=== PATIENT | female | born 1940 | race Caucasian/White ===

== ENCOUNTER 2018-04-30 09:45 | Outpatient (CLI) | payer MEDICARE, OTHER ==
--- NOTE | 2018-04-30 11:57 | PRG ---
DATE OF SERVICE: 04/30/2018 HISTORY: Mrs. Tricia Chambers is a very pleasant 77-year-old previously seen in [facility] for a venous ulceration of the right medial lower leg. The patient now presents to the [facility] for evaluation of an ulceration of the plantar surface of the right second toe. The ulceration of the r ight medial lower leg has healed completely and has remained healed according to the patient's husban d. The ulceration of the plantar surface of the right second toe has been present for approximately 1 month. The patient's states that Mrs. Chambers was seen by Dr. Gold and a course of p.o. antibiotics was prescribed which Mrs. Chambers has completed as prescribed. The patient has been rec eiving the application of vitamin E oil to the ulceration with or without a Band-Aid as a secondary d ressing. Most recently, the patient's states. Mrs. Chambers has not been receiving dressing changes with the use of a Band-Aid over the vitamin E oil. PAST MEDICAL HISTORY: 1. Hypertension. 2. Diabetes mellitus. 3. Arthritis. 4. Osteopenia. 5. Coronary artery disease. 6. Gastroesophageal reflux disease. 7. Dementia. PAST SURGICAL HISTORY: 1. Appendectomy. 2. Tubal ligation. 3. D&C. 4. Right total knee arthroplasty. 04/26/2014. MEDICATIONS: The patient does not have a list of her medications with her today. She states that he r medications; however, include a multivitamin, and vitamin B12. PHYSICAL EXAMINATION: VITAL SIGNS: Temperature 97.7, pulse 73, respirations 21, blood pressure 149/83. Accu-Chek 237. EXTREMITIES: An ulceration of the plantar surface of the right second toe is present, which measures approximately 0.6 x 0.6 cm. Granulation tissue is present within the wound margins. Necrotic and n onviable tissue present within the wound margins was debrided with an excisional full-thickness debri pavel with the use of a curette. Desiccated tissue at the periphery of the wound was excised with t he use of scissors. No purulent drainage is associated with the granulating wound. No erythema of t he skin surrounding the wound is present. No maceration of the skin of the periwound is noted. A do rsalis pedis pulse is palpable on the right. Edema of the right second toe is present on exam today. ASSESSMENT AND PLAN: 1. Ulceration of plantar surface of right second toe. Plain films of the right foot will be obtaine d to look for findings suggestive of osteomyelitis. The patient is also to receive dressing changes of Medihoney and bordered gauze on a daily basis or alternatively every other day after cleansing and irrigation with the assistance of her . Arrangements will be made for the home delivery of d ressing supplies. I have explained to the patient and her if plain films show no evidence of osteomyelitis, consideration will need to be given to MRI with and without contrast to look for find ings suggestive of osteomyelitis. The patient and her understand and are in agreement with t he preceding treatment plan. 2. Hypertension. 3. Diabetes mellitus. The patient's Accu-Chek in clinic today is 237. The patient and her have been told that for optimal wound healing, the patient's blood glucoses should remain below 150. 4. Arthritis. 5. Osteopenia. 6. Coronary artery disease. 7. Gastroesophageal reflux. 8. Dementia.
[2018-04-30] MEDS ORDERED: Sodium Chloride 0.9% 15 ML NEB ONE (16:00)
[2018-04-30] MEDS ORDERED: Lidocaine 2% Jelly 5 ML TUBE ONE (16:00)
== END 2018-04-30 09:46 | disposition home or self-care (01) ==
LOC: WCC 09:45
PROVIDERS: ATTEND Family Medicine
DX: E11.621 Type 2 diabetes mellitus with foot ulcer (principal); L97.519 Non-pressure chronic ulcer of other part of right foot with unspecified severity; I10 Essential (primary) hypertension; M19.90 Unspecified osteoarthritis, unspecified site; M85.80 Other specified disorders of bone density and structure, unspecified site; I25.10 Atherosclerotic heart disease of native coronary artery without angina pectoris; K21.9 Gastro-esophageal reflux disease without esophagitis; F03.90 Unspecified dementia, unspecified severity, without behavioral disturbance, psychotic disturbance, mood disturbance, and anxiety
CPT/HCPCS: 11042; 99213; A4218; G0463

== ENCOUNTER 2018-04-30 11:25 | Outpatient (CLI) | payer MEDICARE, OTHER ==
--- NOTE | 2018-04-30 13:51 | RAD ---
RIGHT SECOND TOE THREE VIEWS: HISTORY: A 77-year-old female with a history of a chronic wound. Clinical concern for osteomyelitis. FINDINGS: There is some soft tissue swelling of the second toe. No overt bony erosive or destructive changes. Deformity of the third metatarsal distally, evidence for a healed fracture. IMPRESSION: Soft tissue swelling of the second toe without fracture or dislocation or evidence for acute bony ero sive or destructive changes. If there remains clinical concern for osteomyelitis, a follow-up MRI st ud[facility] is suggested. POS: TERE
== END 2018-04-30 11:26 | disposition home or self-care (01) ==
LOC: RAD 11:25
PROVIDERS: ATTEND Family Medicine
DX: L97.519 Non-pressure chronic ulcer of other part of right foot with unspecified severity (principal)

== ENCOUNTER 2018-05-15 11:36 | Outpatient (CLI) | payer MEDICARE ==
[2018-05-15] MEDS ORDERED: Gadobenate Dimeglumine 529 MG/1 ML (20ML VIAL) ONE (12:38)
--- NOTE | 2018-05-15 16:45 | MRI ---
MRI OF THE RIGHT FOREFOOT WITH AND WITHOUT IV CONTRAST: PROVIDED CLINICAL HISTORY: Chronic right 2nd toe ulceration. FINDINGS: There is diminished T1 signal intensity and increased signal intensity on the fluid-sensitive sequenc es involving the 2nd digit distal phalanx. This demonstrates corresponding contrast enhancement. Th ere is enhancement of the surrounding soft tissues. There is no evidence for focal fluid collection to suggest abscess. There is no significant tenosynovial fluid apparent. No joint effusion is evide nt. Regional marrow signal appears otherwise normal. Alignment appears anatomic. Nonspecific fluid signal intensity at the dorsum of the foot without associated contrast enhancement presumably reflec ting lymphedema. The dorsal extensor and plantar flexor tendons demonstrate an intact MR appearance. IMPRESSION: Findings compatible with the provided clinical history of 2nd digit wound, with associated osteomyeli tis involving the 2nd digit distal phalanx. POS: [facility]
== END 2018-05-15 11:37 | disposition home or self-care (01) ==
LOC: MRI 11:36
PROVIDERS: ATTEND Family Medicine
DX: E11.621 Type 2 diabetes mellitus with foot ulcer (principal); L97.519 Non-pressure chronic ulcer of other part of right foot with unspecified severity
CPT/HCPCS: A9579

== ENCOUNTER 2018-06-11 08:00 | Day surgery (SDC) | payer MEDICARE ==
--- NOTE | 2018-06-10 10:39 | HP ---
HISTORY OF PRESENT ILLNESS: Tricia Chambers is a 77-year-old female, ambulatory with a walker, followed by Dr. Gold, has seen by Dr. Hardwick in [facility]. She has a right second toe wound which on plain x-rays demonstrated suggestion of osteomyelitis and subsequent MRI scan at [facility] on 05/15/2018 revealed right second toe distal phalanx osteomyelitis. She has a chronic wou nd and mild redness. She has palpable pedal pulses. She has changes of chronic venous stasis. She has been referred for consideration of amputation. Plan is to perform this as an outpatient under in travenous sedation and regional anesthesia, such as ankle block provided by Anesthesia. ALLERGIES: PENICILLIN; SULFA; ZOLOFT, diarrhea and neck spasm; ZANTAC, rash; NEOSPORIN, rash; PENICI LLIN, rash; SULFA, rash. TOBACCO: None. ALCOHOL: None. MEDICATIONS: List obtained from Dr. Gold's records reveal fluoxetine 20 mg a day, amlodipine besy late 20 mg a day, Lantus insulin 2 units at bedtime, Humalog lispro 6 units q.i.d. as needed, pioglit azone 30 mg daily, donepezil 10 mg at bedtime, gabapentin 300 mg b.i.d., Osteo Bi-Flex vitamins, Penl ac solution as needed. PAST SURGICAL HISTORY: Right total knee replacement, right total knee replacement in 2012, cataract surgery, tubal ligation in 1983. PAST MEDICAL HISTORY: Chronic venous stasis disease, diabetes mellitus, hypertension, osteomyelitis of right second toe, sciatica. REVIEW OF SYSTEMS: Noncontributory. FAMILY HISTORY: Noncontributory. PHYSICAL EXAMINATION: VITAL SIGNS: 151/50, 73, 97.9 degrees, 170 pounds, 63 inches. HEENT: Unremarkable. LUNGS: Clear to auscultation. CARDIAC: Regular rate and rhythm without murmur or gallop. ABDOMEN: Soft, obese, nontender. EXTREMITIES: Palpable femoral, popliteal, dorsalis pedis, posterior tibial pulses. Right second toe reveals mild edema with ulceration at the tip. There are some changes over the dorsum of the foot b eneath the right second toe indicative of chronic inflammation resolved. There are chronic venous st asis changes in foot and leg. There are no venous stasis ulcers. ASSESSMENT AND PLAN: Right second toe osteomyelitis, distal phalanx. Would recommend amputation of right second toe. Regional anesthesia ankle block provided by Anesthesia with intravenous sedation o n outpatient and discharged home with a postoperative shoe. Weightbear as tolerated. She will remov e the dressings in 48 hours and begin washing the foot daily with soap and water, placing antibiotic ointment and Band-Aid on it daily. She will report to my office in 2 weeks for suture removal.
[2018-06-10 10:49] VITALS: BMI 29.9
[2018-06-11] MEDS ORDERED: Midazolam HCl 2 mg/2 ml Vial ONE (09:43)
[2018-06-11] MEDS ORDERED: Propofol 500 MG/50 ML VIAL ONE ×2 (09:43→09:58)
[2018-06-11] MEDS ORDERED: Bupivacaine 0.25% HCL 30 ML VIAL ONE (09:43)
[2018-06-11] MEDS ORDERED: Fentanyl 100 MCG/2 ML VIAL ONE (09:43)
[2018-06-11] MEDS ORDERED: Bupivacaine PF 0.5% 30 ML VIAL ONE (09:48)
[2018-06-11] MEDS ORDERED: Lidocaine 2% PF 5 ML VIAL ONE (09:49)
[2018-06-11 09:52] LABS: #Basophils 0.1 thou/uL (0.0-0.2); #Eosinphils 0.2 thou/uL (0.0-0.7); #Lymphocytes 1.2 thou/uL (1.20-3.40); #Monocytes 0.5 thou/uL (0.11-0.59); #Neutrophils 3.6 thou/uL (1.40-6.50); %Basophils 0.9 % (0.0-1.0); %Eosinophils 3.3 % (0.0-10.0); %Lymphocytes 22.1 % (21.0-51.0); %Monocytes 9.5 % (0.0-10.0); %Neutrophils 64.2 % (42.0-75.0); Hemoglobin 12.3 g/dL (12.0-16.0); Mean Corpuscular HGB CONC 32.9 g/dL (32.0-36.0); Mean Corpuscular Hemoglobin 31.3 pg (27.0-31.0); Mean Corpuscular Volume 95.1 fL (78.0-98.0); Mean Platelet Volume 7.8 fL (7.4-10.4); Platelet Count 183 thou/uL (130-400); RBC Distribution Width 12.4 % (11.5-14.5); Red Blood Cell (RBC) Count 3.92 mill/uL (4.20-5.40); White Blood Cell (WBC) Count 5.6 thou/uL (4.8-10.8)
[2018-06-11] MEDS ORDERED: Cefepime 2 GM in Sodium Chloride 0.9% 100 ML IVPB SCH (10:00)
[2018-06-11 10:13] LABS: Anion Gap 10 mmol/L (10-20); BUN (Urea Nitrogen) 23 mg/dL (9.8-20.1); Calc. Creatinine Clearance 60 mL/min (70-130); Calcium 10.1 mg/dL (7.8-10.44); Carbon Dioxide 29 mmol/L (23-31); Chloride 104 mmol/L (98-107); Estimated GFR-MDRD 60; Glucose 226 mg/dL (83-110); Potassium 4.9 mmol/L (3.5-5.1); Sodium 138 mmol/L (136-145)
[2018-06-11] MEDS ORDERED: Bacitracin Zinc Ointment 30 gm TUBE ONE (10:38)
[2018-06-11] MEDS ORDERED: PROPOFOL 200 MG/20 ML VIAL ONE (11:16)
--- NOTE | 2018-06-11 11:49 | OP ---
DATE OF SURGERY: 06/11/2018 PREOPERATIVE DIAGNOSIS: Right second toe osteomyelitis, distal phalanx; diabetic neuropathic ulcer, tip of the toe; palpable pulses. No peripheral arterial disease. SURGEON: Anish Sánchez M.D. ANESTHESIA: TIVA ankle block. PROCEDURE: The patient was taken to the operating room where under right ankle block intravenous sed ation, right lower extremity was prepped with ChloraPrep, draped in routine fashion. Amputation of r ight second toe performed with a fish mouth incision, amputated to the proximal phalanx, resected pro ximally with rongeurs, debriding connective tissue. Excellent bleeding noted from the digital arteri es, cauterized and subcutaneously irrigated and subcutaneous tissue closed proximally with 4-0 Monocr yl, skin with interrupted vertical mattress sutures of 4-0 Prolene. Antibiotic ointment and sterile dressings applied.
--- NOTE | 2018-06-11 15:51 | EKG ---
Test Reason : PREOP Blood Pressure : / mmHG Vent. Rate : 068 BPM Atrial Rate : 068 BPM P-R Int : 170 ms QRS Dur : 080 ms QT Int : 400 ms P-R-T Axes : 049 -26 037 degrees QTc Int : 425 ms Normal sinus rhythm Normal ECG No previous ECGs available Confirmed by TATIANA PATEL ([id number]) on 06/11/2018 3:51:20 PM Referred By: CANDICE Confirmed By:TATIANA PATEL
== END 2018-06-11 13:09 | disposition home or self-care (01) ==
LOC: SDC 08:00
PROVIDERS: ATTEND Specialist
PROC: 0Y6R0Z1 Detachment at Right 2nd Toe, High, Open Approach (ICD-10-PCS; principal; 2018-06-11)
DX: E11.69 Type 2 diabetes mellitus with other specified complication (principal); M86.8X7 Other osteomyelitis, ankle and foot; E11.621 Type 2 diabetes mellitus with foot ulcer; L97.519 Non-pressure chronic ulcer of other part of right foot with unspecified severity; E11.40 Type 2 diabetes mellitus with diabetic neuropathy, unspecified; I10 Essential (primary) hypertension; M54.30 Sciatica, unspecified side; I25.10 Atherosclerotic heart disease of native coronary artery without angina pectoris; M85.80 Other specified disorders of bone density and structure, unspecified site; Z79.4 Long term (current) use of insulin; Z79.899 Other long term (current) drug therapy; Z88.0 Allergy status to penicillin; Z88.2 Allergy status to sulfonamides; Z88.8 Allergy status to other drugs, medicaments and biological substances; Z96.651 Presence of right artificial knee joint
CPT/HCPCS: 36416; 80048; 85025; 88305; 88311; 93005; 93010; J0131; J0692; J2001; J2250; J2704; J3010; J3370; J7050; S0020

== ENCOUNTER 2019-08-24 13:48 | Outpatient (CLI) | payer MEDICARE ==
--- NOTE | 2019-08-24 15:56 | BD ---
BONE DENSITOMETRY USING DEXA: Date: 08/24/2019 HISTORY: Postmenopausal screening for osteoporosis. FINDINGS: Lumbar Spine: BMD (g/cm2) L1 0.773 T-Score: -2.0 Z-Score: 0.4 L2 0.828 T-Score: -1.8 Z-Score: 0.8 L3 0.839 T-Score: -2.2 Z-Score: 0.5 L4 0.910 T-Score: -1.4 Z-Score: 1.5 L1-L4 0.842 T-Score: -1.9 Z-Score: 0.8 Femoral Neck: 0.561 T-Score: -2.6 Z-Score: -0.3 Total Femur: 0.745 T-Score: -1.6 Z-Score: 0.5 IMPRESSION: Osteoporosis. POS: [facility]
== END 2019-08-24 13:49 | disposition home or self-care (01) ==
LOC: BICMAMMO 13:48
PROVIDERS: ATTEND Family Medicine
DX: Z13.820 Encounter for screening for osteoporosis (principal); M81.0 Age-related osteoporosis without current pathological fracture; Z78.0 Asymptomatic menopausal state
CPT/HCPCS: 77080

== ENCOUNTER 2023-04-21 16:50 | Inpatient (IN) | payer MEDICARE ==
[2023-04-21] MEDS ORDERED: Insulin Glargine 30 UNITS/0.3 ML VIAL SC SCH ×2 (21:00→22:30)
[2023-04-21] MEDS ORDERED: Dextrose 5% in Water 1,000 ML IV PRN (21:11)
[2023-04-21] MEDS ORDERED: Dextrose 50% Abboject 50 ML SYRINGE SLOW IVP PRN (21:11)
[2023-04-21] MEDS ORDERED: Glucagon 1 MG/ML KIT IM PRN (21:11)
[2023-04-21] MEDS: HumaLOG 300 UNITS/3 ML VIAL SC PRN (22:23)
[2023-04-21 22:37] LABS: Iron 11 ug/dL (50-170); Iron Binding Capacity, Total 229 mcg/dL (265-497)
[2023-04-21] MEDS ORDERED: Lactated Ringer's 1,000 ML IV SCH (22:45)
[2023-04-21 22:59] LABS: Hemoglobin A1c 6.2 % (4.0-6.0)
[2023-04-22 00:31] VITALS: BMI 24.5
[2023-04-22 04:11] LABS: #Monocytes 0.5 thou/uL (0.11-0.59); #Neutrophils 8.6 thou/uL (1.40-6.50); %Basophils 0.3 % (0.0-1.0); %Eosinophils 0.4 % (0.0-10.0); %Lymphocytes 5.2 % (21.0-51.0); %Monocytes 5.1 % (0.0-10.0); %Neutrophils 88.6 % (42.0-75.0); Hematocrit 22.4 % (36.0-47.0); Hemoglobin 6.8 g/dL (12.0-16.0); Mean Corpuscular HGB CONC 30.4 g/dL (32.0-36.0); Mean Corpuscular Hemoglobin 27.4 pg (27.0-31.0); Mean Corpuscular Volume 90.3 fl (78.0-98.0); Mean Platelet Volume 10.7 fL (7.4-10.4); Platelet Count 246 10x3/uL (130-400); RBC Distribution Width 15.6 % (11.5-14.5); Red Blood Cell (RBC) Count 2.48 mill/uL (4.20-5.40); White Blood Cell (WBC) Count 9.8 10x3/uL (4.8-10.8)
[2023-04-22 04:34] LABS: Anion Gap 11 mmol/L (10-20); BUN (Urea Nitrogen) 29 mg/dL (9.8-20.1); Calc. Creatinine Clearance 39 mL/min (70-130); Carbon Dioxide 27 mmol/L (23-31); Chloride 102 mmol/L (98-107); Estimated GFR 54; Glucose 158 mg/dL (83-110); Magnesium 1.8 mg/dL (1.6-2.6); Potassium 3.7 mmol/L (3.5-5.1); Sodium 136 mmol/L (136-145)
[2023-04-22] MEDS: Magnesium Oxide 400 MG TAB PO SCH ×2 (12:01→21:21)
[2023-04-22] MEDS: Multivitamin W/ Minerals 1 TAB PO SCH (12:01)
[2023-04-22] MEDS: Gabapentin 300 MG CAP PO SCH ×2 (12:01→21:21)
[2023-04-22] MEDS: Pioglitazone HCl 15 MG TAB PO SCH (12:01)
[2023-04-22] MEDS: Amlodipine 5 mg/Benazepril 20 mg CAP PO SCH (12:29)
[2023-04-22] MEDS ORDERED: Polyethylene Glycol 3350 17 GM Packet PO PRN (14:27)
[2023-04-22] MEDS: Acetaminophen 325 MG TAB PO PRN (16:43)
[2023-04-22] MEDS ORDERED: cefTRIAXone\\ROCEPHIN 1 GM in Sodium Chloride 0.9% 100 ML IVPB SCH (17:00)
[2023-04-22 18:17] LABS: Hematocrit 26.6 % (36.0-47.0); Hemoglobin 8.3 g/dL (12.0-16.0)
[2023-04-22] MEDS: FLUoxetine HCl 20 MG CAP PO SCH (21:21)
[2023-04-22] MEDS: Donepezil HCl 10 MG TAB PO SCH (21:21)
[2023-04-22] MEDS ORDERED: Acetaminophen 650 MG Suppository PR PRN (23:17)
[2023-04-23 04:44] LABS: #Monocytes 0.6 thou/uL (0.11-0.59); #Neutrophils 10.8 thou/uL (1.40-6.50); %Basophils 0.3 % (0.0-1.0); %Eosinophils 0.2 % (0.0-10.0); %Monocytes 5.3 % (0.0-10.0); %Neutrophils 89.5 % (42.0-75.0); Hematocrit 28.5 % (36.0-47.0); Hemoglobin 8.6 g/dL (12.0-16.0); Mean Corpuscular HGB CONC 30.2 g/dL (32.0-36.0); Mean Corpuscular Hemoglobin 27.2 pg (27.0-31.0); Mean Corpuscular Volume 90.2 fl (78.0-98.0); Mean Platelet Volume 11.1 fL (7.4-10.4); Platelet Count 221 10x3/uL (130-400); RBC Distribution Width 15.4 % (11.5-14.5); Red Blood Cell (RBC) Count 3.16 mill/uL (4.20-5.40); White Blood Cell (WBC) Count 12.1 10x3/uL (4.8-10.8)
[2023-04-23 05:50] LABS: Anion Gap 12 mmol/L (10-20); BUN (Urea Nitrogen) 25 mg/dL (9.8-20.1); Calc. Creatinine Clearance 34 mL/min (70-130); Calcium 10.4 mg/dL (7.8-10.44); Carbon Dioxide 26 mmol/L (23-31); Chloride 102 mmol/L (98-107); Estimated GFR 47; Glucose 243 mg/dL (83-110); Sodium 136 mmol/L (136-145)
[2023-04-23] MEDS: HumaLOG 300 UNITS/3 ML VIAL SC PRN ×3 (06:01→18:38)
[2023-04-23 06:05] LABS: Bacteria/HPF Rare-Few HPF (None Seen); Bilirubin Negative (Negative); Blood, Urine 2+ (Negative); Clarity Clear (Clear); Glucose, Urine (Dipstick) 500 mg/dL (Negative); Ketone, Urine Negative (Negative); Leukocyte 500 Leu/uL (Negative); Nitrite Negative (Negative); Protein, Urine (Dipstick) 100 mg/dL (Neg-Trace); Specific Gravity, Urine 1.028 (1.002-1.036); Squamous Epithelial 0-3 HPF (0-3); Urobilinogen Normal mg/dL (Less than 2); WBC/HPF Greater than 50 HPF (0-3)
[2023-04-23] MEDS ORDERED: Insulin Glargine 30 UNITS/0.3 ML VIAL SC SCH (08:15)
[2023-04-23] MEDS: Gabapentin 300 MG CAP PO SCH ×2 (08:50→20:22)
[2023-04-23] MEDS: Multivitamin W/ Minerals 1 TAB PO SCH (08:50)
[2023-04-23] MEDS: Amlodipine 5 mg/Benazepril 20 mg CAP PO SCH (08:50)
[2023-04-23] MEDS: Pioglitazone HCl 15 MG TAB PO SCH (08:50)
[2023-04-23] MEDS: Lactated Ringer's 1,000 ML IV SCH (09:38)
[2023-04-23] MEDS ORDERED: Vancomycin Dose by Levels Sliding Scale (Wt <71) FS SCH (11:45)
[2023-04-23] MEDS ORDERED: Vancomycin HCl 750 MG in Sodium Chloride 0.9% 250 ML 250 ML IVPB SCH (12:00)
[2023-04-23] MEDS ORDERED: Vancomycin HCl 500 MG in Sodium Chloride 0.9% 100 ML IVPB SCH (12:00)
[2023-04-23] MEDS: Acetaminophen 325 MG TAB PO PRN (20:23)
[2023-04-23] MEDS: FLUoxetine HCl 20 MG CAP PO SCH (20:24)
[2023-04-23] MEDS: Donepezil HCl 10 MG TAB PO SCH (20:24)
[2023-04-23] MEDS: Cefepime 1 GM in Sodium Chloride 0.9% 100 ML IVPB SCH (20:33)
[2023-04-24 04:51] LABS: #Eosinphils 0.1 thou/uL (0.0-0.7); #Monocytes 0.7 thou/uL (0.11-0.59); #Neutrophils 8.6 thou/uL (1.40-6.50); %Basophils 0.3 % (0.0-1.0); %Eosinophils 1.1 % (0.0-10.0); %Lymphocytes 7.8 % (21.0-51.0); %Monocytes 6.6 % (0.0-10.0); %Neutrophils 83.8 % (42.0-75.0); Hematocrit 26.1 % (36.0-47.0); Mean Corpuscular HGB CONC 30.7 g/dL (32.0-36.0); Mean Corpuscular Hemoglobin 27.6 pg (27.0-31.0); Platelet Count 217 10x3/uL (130-400); RBC Distribution Width 15.5 % (11.5-14.5); White Blood Cell (WBC) Count 10.3 10x3/uL (4.8-10.8)
[2023-04-24 05:12] LABS: Anion Gap 10 mmol/L (10-20); BUN (Urea Nitrogen) 29 mg/dL (9.8-20.1); Calc. Creatinine Clearance 31 mL/min (70-130); Calcium 10.1 mg/dL (7.8-10.44); Carbon Dioxide 26 mmol/L (23-31); Chloride 100 mmol/L (98-107); Estimated GFR 42; Glucose 252 mg/dL (83-110); Potassium 3.7 mmol/L (3.5-5.1); Sodium 132 mmol/L (136-145)
[2023-04-24] MEDS: HumaLOG 300 UNITS/3 ML VIAL SC PRN ×3 (07:11→17:38)
[2023-04-24] MEDS: Multivitamin W/ Minerals 1 TAB PO SCH (08:51)
[2023-04-24] MEDS: Gabapentin 300 MG CAP PO SCH ×2 (08:51→20:17)
[2023-04-24] MEDS: Pioglitazone HCl 15 MG TAB PO SCH (08:51)
[2023-04-24] MEDS: Cefepime 1 GM in Sodium Chloride 0.9% 100 ML IVPB SCH ×2 (08:52→20:16)
[2023-04-24] MEDS: Lactated Ringer's 1,000 ML IV SCH ×3 (09:05→21:18)
[2023-04-24] MEDS ORDERED: Gentamicin 80 MG/2 ML VIAL IM SCH (11:00)
[2023-04-24] MEDS ORDERED: Iopamidol 370 76% 100 ML VIAL ONE (11:39)
[2023-04-24] MEDS: Amlodipine 5 mg/Benazepril 20 mg CAP PO SCH (12:03)
[2023-04-24 13:39] LABS: Vancomycin, Random 6.3 ug/mL (See Comment)
[2023-04-24] MEDS ORDERED: Vancomycin 1 GM in Premix Bag 1 BAG IVPB SCH (16:00)
[2023-04-24] MEDS: Donepezil HCl 10 MG TAB PO SCH (20:17)
[2023-04-24] MEDS: FLUoxetine HCl 20 MG CAP PO SCH (20:17)
[2023-04-24] MEDS ORDERED: Insulin Glargine 30 UNITS/0.3 ML VIAL SC SCH (21:00)
[2023-04-25 04:46] LABS: #Eosinphils 0.2 thou/uL (0.0-0.7); #Monocytes 0.5 thou/uL (0.11-0.59); #Neutrophils 8.2 thou/uL (1.40-6.50); %Basophils 0.3 % (0.0-1.0); %Eosinophils 2.4 % (0.0-10.0); %Lymphocytes 5.2 % (21.0-51.0); %Monocytes 4.9 % (0.0-10.0); %Neutrophils 86.2 % (42.0-75.0); Hematocrit 26.1 % (36.0-47.0); Hemoglobin 8.1 g/dL (12.0-16.0); Mean Corpuscular Hemoglobin 27.5 pg (27.0-31.0); Mean Corpuscular Volume 88.5 fl (78.0-98.0); Platelet Count 245 10x3/uL (130-400); RBC Distribution Width 15.6 % (11.5-14.5); Red Blood Cell (RBC) Count 2.95 mill/uL (4.20-5.40); White Blood Cell (WBC) Count 9.5 10x3/uL (4.8-10.8)
[2023-04-25 05:07] LABS: Anion Gap 10 mmol/L (10-20); BUN (Urea Nitrogen) 28 mg/dL (9.8-20.1); Calc. Creatinine Clearance 37 mL/min (70-130); Calcium 9.7 mg/dL (7.8-10.44); Carbon Dioxide 27 mmol/L (23-31); Chloride 98 mmol/L (98-107); Estimated GFR 52; Glucose 237 mg/dL (83-110); Potassium 3.8 mmol/L (3.5-5.1); Sodium 131 mmol/L (136-145)
[2023-04-25] MEDS: Multivitamin W/ Minerals 1 TAB PO SCH (08:26)
[2023-04-25] MEDS: Saccharomyces boulardii 250 MG CAP PO SCH (08:26)
[2023-04-25] MEDS: Polyethylene Glycol 3350 17 GM Packet PO SCH (08:26)
[2023-04-25] MEDS: Pioglitazone HCl 15 MG TAB PO SCH (08:26)
[2023-04-25] MEDS: Gabapentin 300 MG CAP PO SCH ×2 (08:26→19:53)
[2023-04-25] MEDS: Cefepime 1 GM in Sodium Chloride 0.9% 100 ML IVPB SCH ×2 (08:33→19:54)
[2023-04-25] MEDS: Amlodipine 5 mg/Benazepril 20 mg CAP PO SCH (08:36)
[2023-04-25] MEDS: Lactated Ringer's 1,000 ML IV SCH (10:19)
[2023-04-25] MEDS ORDERED: fentaNYL 50 mcg/mL 1 mL Vial ONE ×2 (10:31)
[2023-04-25] MEDS ORDERED: Ondansetron PF 4 MG/2 ML Vial ONE (11:42)
[2023-04-25] MEDS ORDERED: PROPOFOL 200 MG/20 ML VIAL ONE (11:42)
[2023-04-25] MEDS ORDERED: Dexamethasone 20 MG/5 ML VIAL ONE (11:42)
[2023-04-25] MEDS ORDERED: Lidocaine 1% PF 5 ML VIAL ONE (11:42)
[2023-04-25] MEDS ORDERED: Ondansetron HCl/PF 4 MG/2 ML Vial IVP PRN (12:51)
[2023-04-25] MEDS ORDERED: Promethazine HCl 25 MG/ML VIAL IM PRN (12:51)
[2023-04-25] MEDS: HumaLOG 300 UNITS/3 ML VIAL SC PRN (16:54)
[2023-04-25] MEDS: FLUoxetine HCl 20 MG CAP PO SCH (19:54)
[2023-04-25] MEDS: Donepezil HCl 10 MG TAB PO SCH (19:54)
[2023-04-25] MEDS ORDERED: Insulin Glargine 30 UNITS/0.3 ML VIAL SC SCH ×2 (21:00)
[2023-04-26] MEDS: Lactated Ringer's 1,000 ML IV SCH ×2 (03:28→15:35)
[2023-04-26 04:33] LABS: #Monocytes 0.4 thou/uL (0.11-0.59); #Neutrophils 9.9 thou/uL (1.40-6.50); %Basophils 0.2 % (0.0-1.0); %Lymphocytes 3.2 % (21.0-51.0); %Monocytes 3.4 % (0.0-10.0); %Neutrophils 92.4 % (42.0-75.0); Hematocrit 26.6 % (36.0-47.0); Hemoglobin 8.3 g/dL (12.0-16.0); Mean Corpuscular HGB CONC 31.2 g/dL (32.0-36.0); Mean Corpuscular Hemoglobin 27.4 pg (27.0-31.0); Mean Corpuscular Volume 87.8 fl (78.0-98.0); Mean Platelet Volume 10.8 fL (7.4-10.4); Platelet Count 251 10x3/uL (130-400); RBC Distribution Width 15.3 % (11.5-14.5); Red Blood Cell (RBC) Count 3.03 mill/uL (4.20-5.40); White Blood Cell (WBC) Count 10.7 10x3/uL (4.8-10.8)
[2023-04-26 04:58] LABS: Anion Gap 10 mmol/L (10-20); BUN (Urea Nitrogen) 30 mg/dL (9.8-20.1); Calc. Creatinine Clearance 38 mL/min (70-130); Calcium 9.9 mg/dL (7.8-10.44); Carbon Dioxide 26 mmol/L (23-31); Chloride 101 mmol/L (98-107); Estimated GFR 53; Glucose 293 mg/dL (83-110); Potassium 4.2 mmol/L (3.5-5.1); Sodium 133 mmol/L (136-145)
[2023-04-26] MEDS: Pioglitazone HCl 15 MG TAB PO SCH (08:36)
[2023-04-26] MEDS: Amlodipine 5 mg/Benazepril 10 mg CAP PO SCH (08:36)
[2023-04-26] MEDS: Gabapentin 300 MG CAP PO SCH ×2 (08:36→22:48)
[2023-04-26] MEDS: Saccharomyces boulardii 250 MG CAP PO SCH (08:36)
[2023-04-26] MEDS: Multivitamin W/ Minerals 1 TAB PO SCH (08:37)
[2023-04-26] MEDS: cefTRIAXone\\ROCEPHIN 1 GM in Sodium Chloride 0.9% 100 ML IVPB SCH (08:37)
[2023-04-26] MEDS: Polyethylene Glycol 3350 17 GM Packet PO SCH (08:37)
[2023-04-26] MEDS: HumaLOG 300 UNITS/3 ML VIAL SC PRN ×3 (12:56→22:48)
[2023-04-26] MEDS ORDERED: Insulin Glargine 30 UNITS/0.3 ML VIAL SC SCH (21:00)
[2023-04-26] MEDS: FLUoxetine HCl 20 MG CAP PO SCH (22:48)
[2023-04-26] MEDS: Donepezil HCl 10 MG TAB PO SCH (22:48)
[2023-04-27 05:32] LABS: #Eosinphils 0.3 thou/uL (0.0-0.7); #Monocytes 0.7 thou/uL (0.11-0.59); #Neutrophils 8.1 thou/uL (1.40-6.50); %Basophils 0.3 % (0.0-1.0); %Eosinophils 2.9 % (0.0-10.0); %Lymphocytes 10.2 % (21.0-51.0); %Monocytes 6.6 % (0.0-10.0); %Neutrophils 78.4 % (42.0-75.0); Hematocrit 26.3 % (36.0-47.0); Hemoglobin 8.1 g/dL (12.0-16.0); Mean Corpuscular HGB CONC 30.8 g/dL (32.0-36.0); Mean Corpuscular Hemoglobin 27.1 pg (27.0-31.0); Mean Platelet Volume 10.7 fL (7.4-10.4); Platelet Count 284 10x3/uL (130-400); RBC Distribution Width 15.4 % (11.5-14.5); Red Blood Cell (RBC) Count 2.99 mill/uL (4.20-5.40); White Blood Cell (WBC) Count 10.3 10x3/uL (4.8-10.8)
[2023-04-27 05:57] LABS: Anion Gap 10 mmol/L (10-20); BUN (Urea Nitrogen) 35 mg/dL (9.8-20.1); Calc. Creatinine Clearance 39 mL/min (70-130); Calcium 9.7 mg/dL (7.8-10.44); Carbon Dioxide 26 mmol/L (23-31); Chloride 101 mmol/L (98-107); Estimated GFR 54; Glucose 130 mg/dL (83-110); Potassium 4.3 mmol/L (3.5-5.1); Sodium 133 mmol/L (136-145)
[2023-04-27] MEDS: Saccharomyces boulardii 250 MG CAP PO SCH (08:15)
[2023-04-27] MEDS: Multivitamin W/ Minerals 1 TAB PO SCH (08:15)
[2023-04-27] MEDS: Pioglitazone HCl 15 MG TAB PO SCH (08:15)
[2023-04-27] MEDS: Gabapentin 300 MG CAP PO SCH ×2 (08:16→21:45)
[2023-04-27] MEDS: Polyethylene Glycol 3350 17 GM Packet PO SCH (08:20)
[2023-04-27] MEDS: cefTRIAXone\\ROCEPHIN 1 GM in Sodium Chloride 0.9% 100 ML IVPB SCH (08:20)
[2023-04-27] MEDS: Amlodipine 5 mg/Benazepril 10 mg CAP PO SCH (08:30)
[2023-04-27] MEDS ORDERED: hydrALAZINE 20 MG/ML VIAL SLOW IVP PRN (09:16)
[2023-04-27 11:30] LABS: Magnesium 1.8 mg/dL (1.6-2.6)
[2023-04-27 11:40] LABS: Phosphorus 1.1 mg/dL (2.3-4.7)
[2023-04-27] MEDS ORDERED: Potassium Phosphate 9 MMOL in Sodium Chloride 0.9% 100 ML IVPB SCH (12:00)
[2023-04-27 20:52] LABS: Anion Gap 11 mmol/L (10-20); BUN (Urea Nitrogen) 30 mg/dL (9.8-20.1); Calc. Creatinine Clearance 37 mL/min (70-130); Calcium 9.7 mg/dL (7.8-10.44); Carbon Dioxide 27 mmol/L (23-31); Chloride 99 mmol/L (98-107); Estimated GFR 52; Glucose 175 mg/dL (83-110); Potassium 4.3 mmol/L (3.5-5.1); Sodium 133 mmol/L (136-145)
[2023-04-27 21:04] LABS: Phosphorus 1.4 mg/dL (2.3-4.7)
[2023-04-27] MEDS: FLUoxetine HCl 20 MG CAP PO SCH (21:45)
[2023-04-27] MEDS: Insulin Glargine 30 UNITS/0.3 ML VIAL SC SCH (21:45)
[2023-04-27] MEDS: Donepezil HCl 10 MG TAB PO SCH (21:45)
[2023-04-28] MEDS ORDERED: PHOS-NAK 1 PKT PACK PO SCH (00:30)
[2023-04-28 04:40] LABS: #Basophils 0.1 thou/uL (0.0-0.2); #Eosinphils 0.4 thou/uL (0.0-0.7); #Monocytes 0.6 thou/uL (0.11-0.59); #Neutrophils 5.9 thou/uL (1.40-6.50); %Basophils 0.7 % (0.0-1.0); %Eosinophils 4.7 % (0.0-10.0); %Lymphocytes 11.5 % (21.0-51.0); %Monocytes 7.5 % (0.0-10.0); %Neutrophils 72.8 % (42.0-75.0); Hematocrit 27.6 % (36.0-47.0); Hemoglobin 8.4 g/dL (12.0-16.0); Mean Corpuscular HGB CONC 30.4 g/dL (32.0-36.0); Mean Corpuscular Hemoglobin 26.6 pg (27.0-31.0); Mean Corpuscular Volume 87.3 fl (78.0-98.0); Mean Platelet Volume 10.4 fL (7.4-10.4); Platelet Count 275 10x3/uL (130-400); RBC Distribution Width 15.3 % (11.5-14.5); Red Blood Cell (RBC) Count 3.16 mill/uL (4.20-5.40); White Blood Cell (WBC) Count 8.1 10x3/uL (4.8-10.8)
[2023-04-28 05:09] LABS: Anion Gap 13 mmol/L (10-20); BUN (Urea Nitrogen) 28 mg/dL (9.8-20.1); Calc. Creatinine Clearance 42 mL/min (70-130); Calcium 9.3 mg/dL (7.8-10.44); Carbon Dioxide 25 mmol/L (23-31); Chloride 98 mmol/L (98-107); Estimated GFR 59; Glucose 223 mg/dL (83-110); Potassium 4.8 mmol/L (3.5-5.1); Sodium 131 mmol/L (136-145)
[2023-04-28 05:12] LABS: Phosphorus 1.7 mg/dL (2.3-4.7)
[2023-04-28] MEDS: HumaLOG 300 UNITS/3 ML VIAL SC PRN ×4 (09:20→21:53)
[2023-04-28] MEDS: cefTRIAXone\\ROCEPHIN 1 GM in Sodium Chloride 0.9% 100 ML IVPB SCH (09:20)
[2023-04-28] MEDS: Polyethylene Glycol 3350 17 GM Packet PO SCH (09:21)
[2023-04-28] MEDS: Pioglitazone HCl 15 MG TAB PO SCH (09:22)
[2023-04-28] MEDS: Multivitamin W/ Minerals 1 TAB PO SCH (09:22)
[2023-04-28] MEDS: Gabapentin 300 MG CAP PO SCH ×2 (09:22→21:44)
[2023-04-28] MEDS: PHOS-NAK 1 PKT PACK PO SCH ×3 (09:22→21:46)
[2023-04-28] MEDS: Saccharomyces boulardii 250 MG CAP PO SCH (09:22)
[2023-04-28] MEDS ORDERED: Amlodipine 5 mg/Benazepril 20 mg CAP PO SCH (09:30)
[2023-04-28] MEDS: Sodium Chloride 0.9% 1,000 ML IV SCH (10:40)
[2023-04-28] MEDS: Amlodipine 5 mg/Benazepril 10 mg CAP PO SCH (11:08)
[2023-04-28] MEDS: FLUoxetine HCl 20 MG CAP PO SCH (21:44)
[2023-04-28] MEDS: Donepezil HCl 10 MG TAB PO SCH (21:45)
[2023-04-28] MEDS: Insulin Glargine 30 UNITS/0.3 ML VIAL SC SCH (21:52)
[2023-04-29] MEDS: Sodium Chloride 0.9% 1,000 ML IV SCH ×2 (03:32→23:54)
[2023-04-29 04:20] LABS: #Basophils 0.1 thou/uL (0.0-0.2); #Eosinphils 0.4 thou/uL (0.0-0.7); #Monocytes 0.8 thou/uL (0.11-0.59); #Neutrophils 5.2 thou/uL (1.40-6.50); %Basophils 0.6 % (0.0-1.0); %Eosinophils 4.6 % (0.0-10.0); %Lymphocytes 23.7 % (21.0-51.0); %Monocytes 8.5 % (0.0-10.0); %Neutrophils 58.8 % (42.0-75.0); Hematocrit 27.3 % (36.0-47.0); Hemoglobin 8.5 g/dL (12.0-16.0); Mean Corpuscular HGB CONC 31.1 g/dL (32.0-36.0); Mean Corpuscular Hemoglobin 27.2 pg (27.0-31.0); Mean Corpuscular Volume 87.5 fl (78.0-98.0); Mean Platelet Volume 10.4 fL (7.4-10.4); Platelet Count 329 10x3/uL (130-400); RBC Distribution Width 15.6 % (11.5-14.5); Red Blood Cell (RBC) Count 3.12 mill/uL (4.20-5.40); White Blood Cell (WBC) Count 8.9 10x3/uL (4.8-10.8)
[2023-04-29 04:42] LABS: Phosphorus 2.5 mg/dL (2.3-4.7)
[2023-04-29 04:43] LABS: Anion Gap 11 mmol/L (10-20); BUN (Urea Nitrogen) 27 mg/dL (9.8-20.1); Calc. Creatinine Clearance 45 mL/min (70-130); Calcium 9.7 mg/dL (7.8-10.44); Carbon Dioxide 30 mmol/L (23-31); Chloride 102 mmol/L (98-107); Estimated GFR 65; Potassium 4.1 mmol/L (3.5-5.1); Sodium 139 mmol/L (136-145)
[2023-04-29 05:01] LABS: Glucose 50 mg/dL (83-110)
[2023-04-29] MEDS: cefTRIAXone\\ROCEPHIN 1 GM in Sodium Chloride 0.9% 100 ML IVPB SCH (08:56)
[2023-04-29] MEDS: Multivitamin W/ Minerals 1 TAB PO SCH (08:56)
[2023-04-29] MEDS: Pioglitazone HCl 15 MG TAB PO SCH (08:56)
[2023-04-29] MEDS: Saccharomyces boulardii 250 MG CAP PO SCH (08:57)
[2023-04-29] MEDS: PHOS-NAK 1 PKT PACK PO SCH ×3 (08:57→21:21)
[2023-04-29] MEDS: Gabapentin 300 MG CAP PO SCH ×2 (08:57→21:21)
[2023-04-29] MEDS: Amlodipine 5 mg/Benazepril 20 mg CAP PO SCH (09:37)
[2023-04-29] MEDS: Polyethylene Glycol 3350 17 GM Packet PO SCH (09:37)
[2023-04-29] MEDS: HumaLOG 300 UNITS/3 ML VIAL SC PRN (17:49)
[2023-04-29] MEDS ORDERED: Insulin Glargine 30 UNITS/0.3 ML VIAL SC SCH (21:00)
[2023-04-29] MEDS: FLUoxetine HCl 20 MG CAP PO SCH (21:20)
[2023-04-29] MEDS: Donepezil HCl 10 MG TAB PO SCH (21:20)
[2023-04-30 04:54] LABS: Hematocrit 26.8 % (36.0-47.0); Mean Corpuscular HGB CONC 29.9 g/dL (32.0-36.0); Mean Corpuscular Hemoglobin 26.8 pg (27.0-31.0); Mean Corpuscular Volume 89.9 fl (78.0-98.0); Mean Platelet Volume 10.5 fL (7.4-10.4); Platelet Count 311 10x3/uL (130-400); RBC Distribution Width 16.2 % (11.5-14.5); Red Blood Cell (RBC) Count 2.98 mill/uL (4.20-5.40); White Blood Cell (WBC) Count 6.9 10x3/uL (4.8-10.8)
[2023-04-30 05:02] LABS: Delete Auto Diff?? YES; Manual Diff?? YES
[2023-04-30 05:26] LABS: Anion Gap 13 mmol/L (10-20); BUN (Urea Nitrogen) 23 mg/dL (9.8-20.1); Calc. Creatinine Clearance 46 mL/min (70-130); Calcium 9.7 mg/dL (7.8-10.44); Carbon Dioxide 27 mmol/L (23-31); Chloride 103 mmol/L (98-107); Estimated GFR 66; Glucose 114 mg/dL (83-110); Phosphorus 3.3 mg/dL (2.3-4.7); Potassium 4.5 mmol/L (3.5-5.1); Sodium 138 mmol/L (136-145)
[2023-04-30 05:37] LABS: CellaVision Operator ID LAB.CLH1; Eosinophils 5 % (0-10); Hypochromia SLIGHT = 6-15 cells HPF (0-5); Large Platelets 0.9 % (0-5); Lymphocytes 25 % (21-51); Macrocytosis SLIGHT = 6-15 cells HPF (0-5); Monocytes 2 % (0-10); Myelocyte 1 % (0-0); Neutrophil 67 % (42-75); Platelet Adequacy Comment Platelets Normal; Polychromasia SLIGHT = 2-3 cells HPF (0-2); Total Cell Count 115
[2023-04-30] MEDS: cefTRIAXone\\ROCEPHIN 1 GM in Sodium Chloride 0.9% 100 ML IVPB SCH (08:16)
[2023-04-30] MEDS: Polyethylene Glycol 3350 17 GM Packet PO SCH (08:19)
[2023-04-30] MEDS: PHOS-NAK 1 PKT PACK PO SCH (08:20)
[2023-04-30] MEDS: Multivitamin W/ Minerals 1 TAB PO SCH (08:20)
[2023-04-30] MEDS: Saccharomyces boulardii 250 MG CAP PO SCH (08:20)
[2023-04-30] MEDS: Amlodipine 5 mg/Benazepril 20 mg CAP PO SCH (08:20)
[2023-04-30] MEDS: Gabapentin 300 MG CAP PO SCH ×2 (08:20→20:31)
[2023-04-30] MEDS: Pioglitazone HCl 15 MG TAB PO SCH (08:20)
[2023-04-30] MEDS ORDERED: cefTRIAXone\\ROCEPHIN 1 GM in Sodium Chloride 0.9% 100 ML IVPB SCH (10:15)
[2023-04-30] MEDS: HumaLOG 300 UNITS/3 ML VIAL SC PRN ×2 (18:51→20:30)
[2023-04-30] MEDS: FLUoxetine HCl 20 MG CAP PO SCH (20:31)
[2023-04-30] MEDS: Donepezil HCl 10 MG TAB PO SCH (20:31)
[2023-04-30] MEDS ORDERED: Insulin Glargine 30 UNITS/0.3 ML VIAL SC SCH (21:00)
[2023-05-01 05:17] LABS: #Basophils 0.1 thou/uL (0.0-0.2); #Eosinphils 0.5 thou/uL (0.0-0.7); #Monocytes 0.5 thou/uL (0.11-0.59); #Neutrophils 4.8 thou/uL (1.40-6.50); %Basophils 0.7 % (0.0-1.0); %Eosinophils 6.4 % (0.0-10.0); %Lymphocytes 16.1 % (21.0-51.0); %Monocytes 7.3 % (0.0-10.0); %Neutrophils 67.4 % (42.0-75.0); Hematocrit 26.7 % (36.0-47.0); Hemoglobin 7.9 g/dL (12.0-16.0); Mean Corpuscular HGB CONC 29.6 g/dL (32.0-36.0); Mean Corpuscular Hemoglobin 26.7 pg (27.0-31.0); Mean Corpuscular Volume 90.2 fl (78.0-98.0); Mean Platelet Volume 10.4 fL (7.4-10.4); Platelet Count 295 10x3/uL (130-400); RBC Distribution Width 16.6 % (11.5-14.5); Red Blood Cell (RBC) Count 2.96 mill/uL (4.20-5.40); White Blood Cell (WBC) Count 7.2 10x3/uL (4.8-10.8)
[2023-05-01 07:40] LABS: Anion Gap 10 mmol/L (10-20); BUN (Urea Nitrogen) 23 mg/dL (9.8-20.1); Calc. Creatinine Clearance 46 mL/min (70-130); Calcium 9.7 mg/dL (7.8-10.44); Carbon Dioxide 28 mmol/L (23-31); Chloride 103 mmol/L (98-107); Estimated GFR 66; Glucose 78 mg/dL (83-110); Potassium 4.4 mmol/L (3.5-5.1); Sodium 137 mmol/L (136-145)
[2023-05-01] MEDS ORDERED: cefTRIAXone\\ROCEPHIN 2 GM in Sodium Chloride 0.9% 100 ML IVPB SCH (09:00)
[2023-05-01] MEDS: Pioglitazone HCl 15 MG TAB PO SCH (09:23)
[2023-05-01] MEDS: Amlodipine 5 mg/Benazepril 20 mg CAP PO SCH (09:23)
[2023-05-01] MEDS: Multivitamin W/ Minerals 1 TAB PO SCH (09:23)
[2023-05-01] MEDS: Gabapentin 300 MG CAP PO SCH (09:23)
[2023-05-01] MEDS: Polyethylene Glycol 3350 17 GM Packet PO SCH (09:23)
[2023-05-01] MEDS: Saccharomyces boulardii 250 MG CAP PO SCH (09:23)
[2023-05-01 11:51] VITALS: BP 148/64; TEMP 98.3
[2023-05-03 14:38] LABS: Fungus Stain Final report (.)
== END 2023-05-01 16:03 | DRG 853 ==
LOC: INTOOBSV 19:15 → 2NO 19:15 → OBSVTOIN 22:40
PROVIDERS: ADMIT Student in an Organized Health Care Education/Training Program; ATTEND Student in an Organized Health Care Education/Training Program
PROC: 3E03329 Introduction of Other Anti-infective into Peripheral Vein, Percutaneous Approach (ICD-10-PCS; 2023-04-21)
PROC: 30233N1 Transfusion of Nonautologous Red Blood Cells into Peripheral Vein, Percutaneous Approach (ICD-10-PCS; 2023-04-22)
PROC: 0T7B8DZ Dilation of Bladder with Intraluminal Device, Via Natural or Artificial Opening Endoscopic (ICD-10-PCS; principal; 2023-04-25)
PROC: BT1F1ZZ Fluoroscopy of Left Kidney, Ureter and Bladder using Low Osmolar Contrast (ICD-10-PCS; 2023-04-25)
DX: A41.59 Other Gram-negative sepsis (principal); G93.41 Metabolic encephalopathy; J96.01 Acute respiratory failure with hypoxia; J90 Pleural effusion, not elsewhere classified; N17.9 Acute kidney failure, unspecified; E87.1 Hypo-osmolality and hyponatremia; N13.6 Pyonephrosis; I10 Essential (primary) hypertension; F03.90 Unspecified dementia, unspecified severity, without behavioral disturbance, psychotic disturbance, mood disturbance, and anxiety; Z96.651 Presence of right artificial knee joint; D64.9 Anemia, unspecified; E11.65 Type 2 diabetes mellitus with hyperglycemia; E83.39 Other disorders of phosphorus metabolism; I51.7 Cardiomegaly; I35.8 Other nonrheumatic aortic valve disorders; Z66 Do not resuscitate; Z88.2 Allergy status to sulfonamides; Z88.8 Allergy status to other drugs, medicaments and biological substances; Z88.1 Allergy status to other antibiotic agents; Z79.82 Long term (current) use of aspirin; Z79.4 Long term (current) use of insulin; Z79.899 Other long term (current) drug therapy
CPT/HCPCS: 36415; 36416; 36430; 71046; 74178; 74420; 80048; 80202; 81001; 82728; 83036; 83540; 83550; 83735; 84100; 84145; 85025; 86850; 86900; 86901; 87040; 87077; 87081; 87086; 87102; 87186; 87206; 93306; C2617; J0692; J0696; J1100; J1580; J1650; J1815; J2405; J2704; J3010; J3370; J3370-JW; J3490; J7050; J7120; P9016; Q9967